=== PATIENT | female | born 1995 ===

== ENCOUNTER 2019-06-14 19:12 | Emergency (ER) | payer OTHER ==
[2019-06-14 19:41] VITALS: BP 172/85
== END 2019-06-14 19:48 | disposition home or self-care (01) ==
LOC: ER 19:12
DX: J02.8 Acute pharyngitis due to other specified organisms (principal); E66.9 Obesity, unspecified; F17.200 Nicotine dependence, unspecified, uncomplicated
CPT/HCPCS: 99281